=== PATIENT | female | born 1940 | race Caucasian/White ===

== ENCOUNTER 2017-10-15 08:08 | Outpatient (CLI) ==
--- NOTE | 2017-10-15 09:05 | US ---
EXAM: RENAL ULTRASOUND, BILATERAL HISTORY: Decreased GFR FINDINGS: Ultrasound renal, bilateral. Orellana-scale ultrasound and color Doppler imaging was performe d. The right kidney measures 11.0 x 4.3 x 7.4 centimeters. The left kidney measures 11.1 x 4.3 x 4.2 centimeters. General renal cortical volume and echogenicity are within normal limits for age. Several bilateral r enal cortical cysts are present with largest on the right mid pole at 5.4 cm. Largest on the left 1. 5 cm inferior pole. No definite cystic complexity is identified. Probable bilateral nephrolithiasis. Mild separation of the central echo complex inferiorly on the right may represent minimal hydroneph rosis. IMPRESSION: 1. Probable bilateral nephrolithiasis. Cannot exclude mild right hydronephrosis. 2. Bilateral renal cortical cysts.
== END 2017-10-15 08:09 | disposition home or self-care (01) ==
LOC: RAD 08:08
PROVIDERS: ATTEND Family Medicine
DX: R94.4 Abnormal results of kidney function studies (principal)
CPT/HCPCS: 76770

== ENCOUNTER 2025-01-15 17:33 | Observation (INO) ==
--- NOTE | 2025-01-15 18:17 | ED.PDOC ---
General ED Provider: Dr. YUMIKO MADSEN MD Chief Complaint: Hypertension Stated Complaint: 84 yo WF with history of intermittent elevated BP and takes lisinopril/HCT as needed when her BP is elevated. Quite often it's 120-130/80. Was just sitting and felt shaky, hot and sweaty and her BP was over 200 systolic. No chest pain, cough, SOB or fever. No headache or dizziness. No slurred speech or extremities weakness. Hx of hiatal hernia surgery remotely but no DM, lung or cardiac disease. Time Seen by Provider: 01/15/25 17:51 Mode of Arrival: Walk-In Information Source: Patient and Family Exam Limitations: No limitations Primary Care Provider: CHRISTEL VALADEZ APRN, FNP-C Referred to ED by: Other (self) Nursing and Triage Documentation Reviewed and Agree: Yes Does Patient Take Opioids?: No What is Opioid Naive?: *Opioid Naive implies the patient is not already taking opioids or not chronically receiving opioids on a daily basis. *PRN dosing is not "usually" associated with tolerance. *Patients are at higher risk of over-sedation and aspiration. What is Opioid Tolerant?: *Opioid Tolerance implies less than the expected response to an opioid. *Acquired tolerance is defined by the patient taking 60mg of oral morphine daily (or equianalgesic dose of another opioid) for 1 week or more. *Often associated with chronic pain. *May take more than usual dose to achieve desired pain control. Review of Systems Review Of Systems Constitutional: Reports Diaphoresis and Sweats; Denies Chills or Fever Eyes: Reports No symptoms Ears, Nose, Mouth, Throat: Reports No symptoms Respiratory: Denies Cough or Shortness of Breath Cardiac: Denies Chest pain, Irregular heart rate, Palpitations or Syncope GI: Denies Abdominal pain, Diarrhea or Vomiting : Reports No symptoms Musculoskeletal: Denies Back pain or Joint pain Skin: Reports Other (sweaty) Neurological: Denies Emotional problems, Cognitive dysfunction or Headache PFSH Family History MATERNAL GRANDMOTHER Breast cancer FATHER CHF (congestive heart failure) Hypertension Mother Hypertension Social History Smoking and tobacco status: Never smoker Alcohol intake: never Substance use type: does not use Household members: spouse Marital status: M Current occupational status: retired Seatbelt use: always Drives intoxicated or rides with intoxicated [employer]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 Water heater temperature set < 120 degrees: Yes Working smoke detector in home: Yes Surgical History History of repair of hiatal hernia Z98.890 - Other specified postprocedural states (ICD-10) Z87.19 - Personal history of other diseases of the digestive system (ICD-10) Hx of cholecystectomy Z90.49 - Acquired absence of other specified parts of digestive tract (ICD- 10) Female Reproductive History Menstrual Hx Hysterectomy: No Hx Tubal Ligation: No Physical Exam Physical Exam Appearance: Reports No pain distress and Well-nourished Ill-appearing: Mild Pain Distress: None Eyes: Reports POPPY and EOMI ENT: Reports Ears normal, Nose normal and Oropharynx normal Neck: Supple Respiratory: Reports Airway patent, Breath sounds clear and Breath sounds equal Cardiovascular: Reports RRR, Pulses normal, No rub and No murmur GI/: Reports Soft, Nontender, No masses and Bowel sounds normal Musculoskeletal: Reports Normal strength, ROM intact, No edema and No calf tenderness Skin: Reports Warm, Dry, Normal color, Pale and Diaphoretic Neurological: Reports Sensation intact, Motor intact and Other (PERRL, EOMI, No nystagmus. Finger to nose normal. Normal hand unloader operator. CN 2-12 intact. HiNTS exam showed no saccades on Test of Skew; Head impulse test ? 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) LVH, inferior infarct, age undetermined Course Course 01/15/25 17:56 01/15/25 17:56 Orders, Labs, Meds: Lab Review 01/15/25 01/15/25 17:56 18:30 WBC 7.68 RBC 4.49 Hgb 13.3 Hct 41.6 MCV 92.7 MCH 29.6 MCHC 32.0 RDW Coeff of Marge 17.2 H Plt Count 248 Immature Gran % (Auto) 0.5 Neut % (Auto) 49.2 Lymph % (Auto) 36.1 [place] % (Auto) 9.1 Eos % (Auto) 4.3 Baso % (Auto) 0.8 Neut # (Auto) 3.8 Lymph # (Auto) 2.8 [place] # (Auto) 0.7 Eos # (Auto) 0.3 Baso # (Auto) 0.1 Immature Gran # (Auto) 0.0 Sodium 136.7 Potassium 3.60 Chloride 100.1 Carbon Dioxide 28.9 Anion Gap 11.30 BUN 20.2 H Creatinine 1.27 Estimated GFR (MDRD) 40.00 BUN/Creatinine Ratio 15.90 Glucose 90.9 Lactic Acid 1.43 Calcium 10.16 Total Bilirubin 0.42 AST 69.5 H ALT 24.5 Alkaline Phosphatase 91.0 Troponin I < 0.012 Total Protein 7.69 Albumin 4.65 Globulin 3.04 Albumin/Globulin Ratio 1.52 Procalcitonin < 0.05 D-Dimer 2537.03 H Urine Color Yellow Urine Clarity Clear Urine pH 7.0 Ur Specific [place] 1.020 Urine Protein Negative Urine Glucose (UA) Negative Urine Ketones Negative Urine Blood Negative Urine Nitrite Negative Urine Bilirubin Negative Urine Urobilinogen 0.2 Ur Leukocyte Esterase Negative Orders Category Date Time Status EKG-(ED ONLY) Stat CARDIO 01/15/25 18:06 Completed NPO REMINDER: IMAGING ONCE CARE 01/15/25 19:20 Active Saline Lock [ED IV/MEDIPORT/POWERPORT] .ONCE EMERGENCY 01/15/25 18:06 Active CBC W/ AUTO DIFF Stat LAB 01/15/25 17:56 Completed CMP [COMPREHENSIVE METABOLIC PANEL] Stat LAB 01/15/25 17:56 Completed D-DIMER Stat LAB 01/15/25 17:56 Completed LACTIC ACID Stat LAB 01/15/25 17:56 Completed PROCALCITONIN Stat LAB 01/15/25 17:56 Completed TROPONIN I Stat LAB 01/15/25 17:56 Completed URINALYSIS C & S IF INDICATED Stat LAB 01/15/25 18:30 Completed 0.9 % Sodium Chloride [Saline Flush] Meds 01/15/25 18:06 Active 1 syr IVF PRN PRN Iodixanol [Visipaque 320 mg/ml 100Ml] Meds 01/15/25 19:56 Discontinued 100 ml IVP ONCE ONE Lorazepam [Ativan] Meds 01/15/25 18:06 Discontinued 0.5 mg IVP ONCE ONE CHEST, 1V AP ONLY Stat RADS 01/15/25 18:06 Taken CTA CHEST PE PROTOCOL Stat RADS 01/15/25 19:20 Taken Medications Generic Name Dose Route Start Last Admin Trade Name Freq PRN Reason Stop Dose Admin Sodium Chloride 1 syr 01/15/25 18:06 0.9% Sodium Chloride 10 Ml Disp.Syrin IVF PRN PRN To flush IV Discontinued Medications Generic Name Dose Route Start Last Admin Trade Name Freq PRN Reason Stop Dose Admin Iodixanol 100 ml 01/15/25 19:56 01/15/25 19:57 Iodixanol 320 Mg/Ml 100ml IVP 01/15/25 19:57 100 ml ONCE ONE Administration Lorazepam 0.5 mg 01/15/25 18:06 01/15/25 18:42 Lorazepam Inj 2 Mg/Ml Vial IVP 01/15/25 18:07 0.5 mg ONCE ONE Administration Vital Signs: Temp Pulse Resp BP Pulse Ox 01/15/25 17:37 97.9 F 76 20 230/112 H 100 Resting comfortably. Radiologist calls back and said she have a small subsegmental PE in the RLL. No RV strain. Call to Kristen and she will admit to [facility] GONZALO Risk Score GONZALO Risk Score: Risk Score Odds of by 30D 0 0.1 (0.1-0.2) 1 0.3 (0.2-0.3) 2 0.4 (0.3-0.5) 3 0.7 (0.6-0.9) 4 1.2 (1.0-1.5) 5 2.2 (1.9-2.6) 6 3.0 (2.5-3.6) 7 4.8 (3.8-6.1) Discharge Plan Discharge Patient Disposition: PLACED OBSERVATION Discharge Problem: Pulmonary embolism Prescriptions: No Action lisinopril-hydrochlorothiazide 10-12.5 mg tablet 1 tab PO DAILY Qty: 30 1RF albuterol sulfate 2.5 mg /3 mL (0.083 %) solution for nebulization 2.5 mg inhalation Q4-6H PRN (Reason: shortness of breath or wheezing) Qty: 90 0RF lisinopril 10 mg tablet 10 mg PO DAILY PRN (Reason: high blood pressure) Did you review [place] BIOLOGICAL INSPECTOR for ALL controlled substances?: Not Applicable ED Provider: YUMIKO MADSEN Condition: Serious
[2025-01-15 18:27] LABS: BASOPHILS # (AUTO) 0.1 K/uL (0-0.2); BASOPHILS % (AUTO) 0.8 % (0.0-3.0); EOSINOPHILS # (AUTO) 0.3 K/ul (0.0-0.7); EOSINOPHILS % (AUTO) 4.3 % (0.0-7.0); HEMATOCRIT 41.6 % (37.0-47.0); HEMOGLOBIN 13.3 g/dl (12.0-16.0); IMMATURE GRANULOCYTE % (AUTO) 0.5 % (0.0-5.0); LYMPHOCYTES # (AUTO) 2.8 K/uL (0.60-3.4); LYMPHOCYTES % (AUTO) 36.1 (10.0-50.0); MEAN CORPUSCULAR HEMOGLOBIN 29.6 pg (27.0-31.0); MEAN CORPUSCULAR VOLUME 92.7 fl (81.0-99.0); MONOCYTES # (AUTO) 0.7 K/uL (0.4-2.0); MONOCYTES % (AUTO) 9.1 (0-10); NEUTROPHILS # (AUTO) 3.8 K/ul (2.0-6.9); NEUTROPHILS % (AUTO) 49.2 % (42.2-75.2); PLATELET COUNT 248 10^3/uL (140-440); RDW COEFFICIENT OF VARIATION 17.2 % (11.6-14.8); RED BLOOD COUNT 4.49 10^6/ul (4.20-5.40); WHITE BLOOD COUNT 7.68 K/ul (4.6-10.2)
[2025-01-15 18:40] LABS: BILIRUBIN,URINE Negative (NEGATIVE); CLARITY,URINE Clear (CLEAR); COLOR,URINE Yellow (YELLOW); GLUCOSE, URINE (UA) Negative (NEGATIVE); KETONES,URINE Negative (NEGATIVE); LEUKOCYTE ESTERASE ,URINE Negative (NEGATIVE); NITRITE,URINE Negative (NEGATIVE); PROTEIN,URINE Negative (NEGATIVE); URINE, BLOOD Negative (NEGATIVE); UROBILINOGEN,URINE 0.2 (0.2)
[2025-01-15] MEDS: ATIVAN IVP ONE (18:42)
[2025-01-15 19:07] LABS: ALANINE AMINOTRANSFERASE 24.5 U/L (0-35); ALBUMIN 4.65 g/dL (3.5-5.0); ASPARTATE AMINO TRANSFERASE 69.5 U/L (14-36); BILIRUBIN,TOTAL 0.42 mg/dL (0.2-1.3); BLOOD UREA NITROGEN 20.2 mg/dL (7-17); CALCIUM 10.16 mg/dL (8.4-10.2); CARBON DIOXIDE 28.9 mmol/L (22-30.0); CHLORIDE 100.1 mmol/L (98-107); CREATININE 1.27 mg/dL (0.60-1.30); GLUCOSE 90.9 mg/dL (74-106); SODIUM 136.7 mmol/L (134.5-145); TOTAL PROTEIN 7.69 g/dL (6.3-8.2)
[2025-01-15 19:19] LABS: TROPONIN I < 0.012 ng/ml (0.0000-0.120)
[2025-01-15] MEDS: VISIPAQUE 320 MG/ML 100ML IVP ONE (19:57)
--- NOTE | 2025-01-15 21:27 | CT ---
EXAM: CT ANGIOGRAPHY OF THE CHEST History: Elevated D-dimer, hypertension Technique: 0.[address] chest utilizing CT angiography protocol. Multiplanar and three-d imensional reformations were performed. FINDINGS: Technically adequate for evaluation of pulmonary arteries and aorta. Trace segmental thro mbus seen in the right lower lobe (series 5 image 145). No central thrombus is seen. No significant pulmonary parenchymal abnormality. Atherosclerotic calcification of the aorta with maximal ascendin g diameter 3.6 cm. No aortic dissection. No mediastinal lymphadenopathy. No acute chest wall abnor mality. Chronic wedge deformity T8. No acute findings of the upper abdomen. Moderate size hiatus he rnia. Impression: 1. Critical result: Small thrombus posterior right lower lobe. Most proximal thrombus in the segme ntal right lower lobe pulmonary artery. No evidence of right heart strain. 2. No infiltrates or consolidative change. 3. Moderate size hiatus hernia without complication Discussed with ordering physician 2120 hours Central time 01/15/[address] scans are performed using dose optimization techniques as appropriate to the performed exam an d include at least one of the following: Automated exposure control, adjustment of the mA and/or kV according t o size, and the use of iterative reconstruction technique.
[2025-01-15] MEDS ORDERED: ZOFRAN SDV IVP PRN (21:31)
[2025-01-15] MEDS ORDERED: TYLENOL PO PRN (21:31)
--- NOTE | 2025-01-15 22:14 | DI ---
EXAM: SINGLE FRONTAL VIEW OF THE CHEST HISTORY: Elevated blood pressure. COMPARISON: Chest x-ray 11/22/24 FINDINGS: Cardiomediastinal silhouette is unremarkable. There is no pneumothorax or effusion. There i s no consolidation, nodule or mass. Calcified granuloma is noted in the right lung. The osseous struc tures are IMPRESSION: No acute cardiopulmonary process
[2025-01-15 22:33] LABS: SARS COV-2 RNA RAPID NAAT NEGATIVE (NEGATIVE)
[2025-01-15] MEDS ORDERED: HYDRALAZINE HCL IVP PRN (22:49)
[2025-01-16] MEDS: ELIQUIS PO SCH (01:53)
[2025-01-16 02:12] VITALS: BMI 22.6
[2025-01-16 05:13] VITALS: TEMP 97.5
[2025-01-16 06:03] LABS: BASOPHILS % (AUTO) 1.1 % (0.0-3.0); EOSINOPHILS # (AUTO) 0.2 K/ul (0.0-0.7); EOSINOPHILS % (AUTO) 4.6 % (0.0-7.0); HEMATOCRIT 40.4 % (37.0-47.0); HEMOGLOBIN 13.1 g/dl (12.0-16.0); IMMATURE GRANULOCYTE % (AUTO) 0.3 % (0.0-5.0); LYMPHOCYTES # (AUTO) 1.1 K/uL (0.60-3.4); LYMPHOCYTES % (AUTO) 28.9 (10.0-50.0); MEAN CORPUSCULAR HEMOGLOBIN 30.2 pg (27.0-31.0); MEAN CORPUSCULAR HGB CONC 32.4 (31.8-35.4); MEAN CORPUSCULAR VOLUME 93.1 fl (81.0-99.0); MONOCYTES # (AUTO) 0.3 K/uL (0.4-2.0); MONOCYTES % (AUTO) 7.1 (0-10); NEUTROPHILS # (AUTO) 2.1 K/ul (2.0-6.9); PLATELET COUNT 179 10^3/uL (140-440); RDW COEFFICIENT OF VARIATION 16.9 % (11.6-14.8); RED BLOOD COUNT 4.34 10^6/ul (4.20-5.40); WHITE BLOOD COUNT 3.67 K/ul (4.6-10.2)
[2025-01-16 06:12] LABS: ALANINE AMINOTRANSFERASE 19.6 U/L (0-35); ALBUMIN 3.38 g/dL (3.5-5.0); ALKALINE PHOSPHATASE 62.4 U/L (53-141); ASPARTATE AMINO TRANSFERASE 73.4 U/L (14-36); BILIRUBIN,TOTAL 0.45 mg/dL (0.2-1.3); BLOOD UREA NITROGEN 17.6 mg/dL (7-17); CALCIUM 9.96 mg/dL (8.4-10.2); CARBON DIOXIDE 29.5 mmol/L (22-30.0); CHLORIDE 103.8 mmol/L (98-107); CREATININE 0.94 mg/dL (0.60-1.30); GLUCOSE 88.4 mg/dL (74-106); POTASSIUM 3.72 mmol/L (3.5-5.1); SODIUM 137.1 mmol/L (134.5-145); TOTAL PROTEIN 5.86 g/dL (6.3-8.2)
[2025-01-16 06:13] LABS: PROTHROMBIN TIME 10.6 SEC (9.3-11.0)
[2025-01-16 08:59] LABS: TROPONIN I 0.013 ng/ml (0.0000-0.120)
[2025-01-16 10:52] VITALS: BP 152/79; PULSE 61; RESP 16
--- NOTE | 2025-01-16 11:13 | PCM.SS ---
Provider Provider[facility] PERDOMO [facility]-C[facility] Date Admission Date: 01/15/25 Discharge Date Discharge Date: 01/16/25 Primary Care Physician Primary Care Physician: CHRISTEL VALADEZ APRN, MARISOL-C Chief Complaint Reason For Visit: PULMONARY EMBOLUS History of Present Illness History of Present Illness: Admitted 01/15/25 22:46, this 84 year old /WHITE/F with pmhx of hypertension, vitamin d deficiency, and hyperlipidemia who presented to ER with hypertensive episode. Patient tends to take her BP med based on how her BP readings are in the mornings. She had an episode in the evening of some sweating and overall not feeling well. Family thought her sugar might be low and gave her some peanut butter. This didn't help. They checked her BP and it was reading very high, near 200 systolic. She felt weak and light headed. Every time they checked her BP it got higher. In the ER she was initially 230/112. Work up was overall negative except PE was found in RLL. Vitals stable. Patient's BP improved without intervention. Patient admitted to [facility] for acute PE. Patient has remained asymptomatic. BP much improved. Echo performed and showed no right ventricular strain. Trop and bnp unremarkable. Pt is on RA. No recent travel, surgeries, changes in medications. No hx of dvt/pe in the past. No frequent falls. No hx of GI bleed, etc. No calf pain/swelling/warmth. Will start on eliquis for at least 3 months and f/u with pcp to determine further need. Risks and benefits discussed and patient wishes to proceed. She also requests something to help with the "puffiness" in her legs on occasion, she used to take hctz. Will prescribe hctz prn. Advised to let pcp know if she is using it regularly so labs can be monitored. [facility] Surgical History History of repair of hiatal hernia Z98.890 - Other specified postprocedural states (ICD-10) Z87.19 - Personal history of other diseases of the digestive system (ICD-10) Hx of cholecystectomy Z90.49 - Acquired absence of other specified parts of digestive tract (ICD- 10) Family History MATERNAL GRANDMOTHER Breast cancer FATHER CHF (congestive heart failure) Hypertension Mother Hypertension Social History Smoking and tobacco status: Never smoker Alcohol intake: never Substance use type: does not use Household members: spouse Marital status: M Current occupational status: retired Seatbelt use: always Drives intoxicated or rides with intoxicated 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 Water heater temperature set < 120 degrees: Yes Working smoke detector in home: Yes Medications Mecications: Medications at Discharge (Home Meds & RX) albuterol sulfate 2.5 mg/3 mL (0.083 %) solution for nebulization 2.5 mg (3 mL) inhalation Q4-6H PRN shortness of breath or wheezing #90 mL 11/22/24 lisinopril 10 mg-hydrochlorothiazide 12.5 mg tablet 1 tab PO DAILY #30 tabs 01/14/25 lisinopril 10 mg tablet 10 mg PO DAILY PRN high blood pressure 01/15/25 Allergies Allergies Allergy/AdvReac Type Severity Reaction Status Date / Time No Known Allergies Allergy Verified 01/15/25 17:43 Review of Systems Constitutional: Reports Weakness; Denies Fever or Fatigue Head: Reports Normocephalic and Atraumatic Cardiovascular: Reports Edema; Denies Chest pain or Chest Pressure Respiratory: Denies Cough, Shortness of air or Hemoptysis Gastrointestinal: Denies Nausea, Vomiting, Diarrhea, Abdominal pain or Melena Genitourinary: Denies Dysuria or Frequency Dermatologic: Denies Rashes Neurological: Reports Dizziness (resolved ) and Weakness Physical Examination Appearance: Positive Well-appearing, Well-nourished, No Apparent Distress and Alert and Oriented x3 Head: Positive Normocephalic and Atraumatic Neck: Positive Supple and Trachea Midline Heart: Positive RRR Respiratory: Positive Breath Sounds Clear, Bilaterally and Respirations Nonlabored; Negative Crackles, Rhonchi or Wheezes GI/: Positive Soft, Nontender, Bowel sounds normal and No Distention Extremities: Positive Edema (+mild, generalized lower ext, nonpitting ) and Pedal Pulses Palpable Bilaterally Neurological: Positive Cranial nerves intact, Alert and Oriented Psychiatric: Positive Normal Judgement, Normal Insight, Affect Appropriate and Mood Appropriate Vital Signs (Last 4 Hours) Vital Signs Last 4 Hours: Vital Signs: Last 4 Hours 01/16/25 07:43 01/16/25 07:50 01/16/25 09:00 Pulse Rate Respiratory Rate Blood Pressure Blood Pressure Mean Blood Pressure Location Blood Pressure Position O2 Sat by Pulse Oximetry Oxygen Delivery Method Room Air Room Air Room Air 01/16/25 10:00 01/16/25 10:00 01/16/25 11:00 Pulse Rate 61 Respiratory Rate 16 Blood Pressure 152/79 H Blood Pressure Mean 103 Blood Pressure Location Right Arm Blood Pressure Position Sitting O2 Sat by Pulse Oximetry 95 Oxygen Delivery Method Room Air Room Air Room Air Labs This Visit Labs This Visit: Labs This Visit 01/15/25 01/15/25 01/15/25 17:56 18:30 21:39 WBC 7.68 RBC 4.49 Hgb 13.3 Hct 41.6 MCV 92.7 MCH 29.6 MCHC 32.0 RDW Coeff of Marge 17.2 H Plt Count 248 Immature Gran % (Auto) 0.5 Neut % (Auto) 49.2 Lymph % (Auto) 36.1 [place] % (Auto) 9.1 Eos % (Auto) 4.3 Baso % (Auto) 0.8 Neut # (Auto) 3.8 Lymph # (Auto) 2.8 [place] # (Auto) 0.7 Eos # (Auto) 0.3 Baso # (Auto) 0.1 Immature Gran # (Auto) 0.0 PT INR Sodium 136.7 Potassium 3.60 Chloride 100.1 Carbon Dioxide 28.9 Anion Gap 11.30 BUN 20.2 H Creatinine 1.27 Estimated GFR (MDRD) 40.00 BUN/Creatinine Ratio 15.90 Glucose 90.9 Lactic Acid 1.43 Calcium 10.16 Total Bilirubin 0.42 AST 69.5 H ALT 24.5 Alkaline Phosphatase 91.0 Troponin I < 0.012 NT-Pro-B Natriuret Pep Total Protein 7.69 Albumin 4.65 Globulin 3.04 Albumin/Globulin Ratio 1.52 Procalcitonin < 0.05 D-Dimer 2537.03 H Urine Color Yellow Urine Clarity Clear Urine pH 7.0 Ur Specific [place] 1.020 Urine Protein Negative Urine Glucose (UA) Negative Urine Ketones Negative Urine Blood Negative Urine Nitrite Negative Urine Bilirubin Negative Urine Urobilinogen 0.2 Ur Leukocyte Esterase Negative SARS CoV-2 RNA Rapid ELI Negative 01/15/25 01/16/25 21:44 05:33 WBC 3.67 L RBC 4.34 Hgb 13.1 Hct 40.4 MCV 93.1 MCH 30.2 MCHC 32.4 RDW Coeff of Marge 16.9 H Plt Count 179 Immature Gran % (Auto) 0.3 Neut % (Auto) 58.0 Lymph % (Auto) 28.9 [place] % (Auto) 7.1 Eos % (Auto) 4.6 Baso % (Auto) 1.1 Neut # (Auto) 2.1 Lymph # (Auto) 1.1 [place] # (Auto) 0.3 L Eos # (Auto) 0.2 Baso # (Auto) 0.0 Immature Gran # (Auto) 0.0 PT 10.6 INR 1.02 Sodium 137.1 Potassium 3.72 Chloride 103.8 Carbon Dioxide 29.5 Anion Gap 7.52 BUN 17.6 H Creatinine 0.94 Estimated GFR (MDRD) 57.00 BUN/Creatinine Ratio 18.72 Glucose 88.4 Lactic Acid Calcium 9.96 Total Bilirubin 0.45 AST 73.4 H ALT 19.6 Alkaline Phosphatase 62.4 D Troponin I 0.023 0.013 NT-Pro-B Natriuret Pep 172 H Total Protein 5.86 L Albumin 3.38 L Globulin 2.48 Albumin/Globulin Ratio 1.36 Procalcitonin D-Dimer Urine Color Urine Clarity Urine pH Ur Specific [place] Urine Protein Urine Glucose (UA) Urine Ketones Urine Blood Urine Nitrite Urine Bilirubin Urine Urobilinogen Ur Leukocyte Esterase SARS CoV-2 RNA Rapid ELI Imaging Imaging: EXAM: SINGLE FRONTAL VIEW OF THE CHEST HISTORY: Elevated blood pressure. COMPARISON: Chest x-ray 11/22/24 FINDINGS: Cardiomediastinal silhouette is unremarkable. There is no pneumothorax or effusion. There is no consolidation, nodule or mass. Calcified granuloma is noted in the right lung. The osseous structures are IMPRESSION: No acute cardiopulmonary process EXAM: CT ANGIOGRAPHY OF THE CHEST History: Elevated D-dimer, hypertension Technique: 0.[address] chest utilizing CT angiography protocol. Multiplanar and three-dimensional reformations were performed. FINDINGS: Technically adequate for evaluation of pulmonary arteries and aorta. Trace segmental thrombus seen in the right lower lobe (series 5 image 145). No central thrombus is seen. No significant pulmonary parenchymal abnormality. Atherosclerotic calcification of the aorta with maximal ascending diameter 3.6 cm. No aortic dissection. No mediastinal lymphadenopathy. No acute chest wall abnormality. Chronic wedge deformity T8. No acute findings of the upper abdomen. Moderate size hiatus hernia. Impression: 1. Critical result: Small thrombus posterior right lower lobe. Most proximal thrombus in the segmental right lower lobe pulmonary artery. No evidence of right heart strain. 2. No infiltrates or consolidative change. 3. Moderate size hiatus hernia without complication Discussed with ordering physician 2121 hours Central time 01/15/2025 Review Review Statement: I have independently reviewed and interpreted the labs/EKGs/imaging that were ordered by the ER provider. I have reviewed all outside records that are available currently in our EMR including imaging/notes/labs from previous visits. Plan Reccomendations/Plan: 1. Acute PE - unprovoked - start eliquis 10 mg bid x7 days then 5 mg bid. Will do 340 B program for pricing. Risks and benefits discussed. Need to take at least 3 months then reevaluate. Patient and family agree. Echo performed, report still pending. BNP and trop unremarkable. Pt is asymptomatic. Likely incidental finding. 2. Hypertensive urgency - Resolved without intervention. Pt takes lisinopril prn. Advised to take daily. 3. Hyperlipidemia - noted in chart but not on anything currently Patient has remained asymptomatic. BP much improved. Echo performed and showed no right ventricular strain. Final report still pending, but noted to have good LV function per Dr. Evita Styles. Trop and bnp unremarkable. Pt is on RA. No recent travel, surgeries, changes in medications. No hx of dvt/pe in the past. No frequent falls. No hx of GI bleed, etc. No calf pain/swelling/warmth. Will start on eliquis for at least 3 months and f/u with pcp to determine further need. Risks and benefits discussed and patient wishes to proceed. She also requests something to help with the "puffiness" in her legs on occasion, she used to take hctz. Will prescribe hctz prn. Advised to let pcp know if she is using it regularly so labs can be monitored. Discharged to home in stable condition. Discharge Diagnoses: 1. Acute PE 2. Hypertensive urgency, resolved 3. Hyperlipidemia Additional Planning: Case discussed with ED Physician, Dr. Barnett. DVT Prophylaxis: Eliquis Advanced Care Plannin minutes spent discussing advance care planning. Admit to: Obs Discussed Plan of Care with Dr. Columba Styles. Review With Patient Reviewed with Patient and Family: Patient and family have been counseled on condition and care plan and have no immediate questions. I have personally discussed and reviewed the patient's visit/current labs/imaging/decision making with Dr. Columba Styles, my supervising attending. Total number of minutes spent with patient [85] min. More than 50% of the time spent with this patient was devoted to counseling and coordination of care. Time of Admission:01/15/25 22:46 Time of Discharge: 01/16/25 1045 Discharge Plan Discharge Discharge Orders: Discharge Patient (ONCE); Ordered 01/16/25 Ordered By: DAIJA PERDOMO Activity Restrictions/Additional Instructions: DISCHARGE TO HOME DX: PULMONARY EMBOLISM ELIQUIS IS A BLOOD THINNER, TAKE AT LEAST 3 MONTHS HCTZ PRESCRIBED NEEDED FOR SWELLING, FOLLOW UP WITH PCP IF TAKING REGULARLY PHARMACY: [facility] 340 B PROGRAM SHOULD HELP WITH COST OF ELIQUIS Instructions: Pulmonary Embolism (DC), Blood Thinners (DC) Care Plan Goals: Problem: Elevated blood pressure Goal: Medically managed blood pressure Instructions: Monitor blood pressure as needed Medication for elevated blood pressure as directed Monitor for signs/symptoms of elevated blood pressure Patient Disposition: HOME SELF-CARE Prescriptions: New hydrochlorothiazide 12.5 mg capsule 12.5 mg PO DAILY PRN (Reason: SWELLING) Qty: 14 0RF Eliquis 5 mg tablet See Rx Instructions .ROUTE .COMPLEX Qty: 72 0RF Rx Instructions: TAKE 10 MG BID X6 DAYS, THEN 5 MG BID (30 DAY SUPPLY) 340 B PROGRAM Continued albuterol sulfate 2.5 mg /3 mL (0.083 %) solution for nebulization 2.5 mg inhalation Q4-6H PRN (Reason: shortness of breath or wheezing) Qty: 90 0RF Changed lisinopril 10 mg tablet 10 mg PO DAILY Qty: 30 0RF Discontinued lisinopril-hydrochlorothiazide 10-12.5 mg tablet 1 tab PO DAILY Qty: 30 1RF Did you review [place] WHEEL PRESS OPERATOR for ALL controlled substances?: Not Applicable Discussed opioids are addictive and Narcan is available by prescription or from pharmacy.: No Condition: Serious Referrals: CHRISTEL VALADEZ, NATALIA,ELEVATOR TROUBLESHOOTER-C [Primary Care Provider] - 01/26/25 1:45 pm
--- NOTE | 2025-01-19 08:59 | ECHO2D ---
Date of Exam: 01/16/2025 Ordering Physician: FAY VALADEZ Room #: SCU3 Reason for Echo: ACUTE PULMONARY EMBOLISM, MILD CARDIOMEGALY, HTN M-Mode Normal Adult Results LV Dimensions Normal Adult Results AoV Opening excursions >1.6 1.5 LVEDD-base- 3.5-5.8 4.0 Ao root dimensions 2.0-3.7 3.1 LVESD-base- 3.1-4.6 L. Atrium dimensions 1.9-3.8 4.8 Post. Wall thickness 0.8-1.1 1.3 IV septum (thickness) 0.7-1.2 1.4 Post. Wall excursion 0.72-1.3 NORMAL Septal motion NORMAL Systolic motion R. Ventricular cavity 1.5-2.0 NORMAL LVEF 60% 70% Paradoxical septal wall motion NORMAL [] 2-D : 2-D M Mode Echocardiogram was performed using apical four chamber and left parasternal long and short axis views. Mitral, tricuspid and aortic valves appear to be normal. Contractility of the left ventricle seems to be normal, so is the cavity size. Enlarged left atrial cavity size. Calcific aortic valve leaflets. There is no pericardial effusion. There is no thrombus noted in the left ventricle or left atrial cavity. M-MODE: MV: NORMAL AV: CALCIFIC AORTIC VALVE LEAFLETS--NO STENOSIS TV: NORMAL PV: NORMAL CHAMBER SIZE: ENLARGED LEFT ATRIAL CAVITY WALL MOTION: NORMAL PERICARDIUM: NORMAL INTERPRETATION: 1. 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 CALCIFIC AORTIC VALVES--NO STENOSIS 3. NORMAL LEFT VENTRICLE AND RIGHT VENTRICLE CAVITIES 4. NORMAL LEFT VENTRICLE CONTRACTILITY MTDD
== END 2025-01-16 13:00 | disposition home or self-care (01) ==
LOC: ED 17:33 → SCU 17:33
PROVIDERS: ADMIT Hospitalist; ATTEND Physician Assistant
DX: Z20.822 Contact with and (suspected) exposure to COVID-19; I26.99 Other pulmonary embolism without acute cor pulmonale; Z79.899 Other long term (current) drug therapy; I10 Essential (primary) hypertension; Z51.81 Encounter for therapeutic drug level monitoring; E78.5 Hyperlipidemia, unspecified